=== PATIENT | female | born 1960 | race American Indian/Alaskan Native ===

== ENCOUNTER 2017-01-22 08:15 | Emergency (ER) | payer MEDICARE, OTHER ==
[2017-01-22] MEDS ORDERED: Ondansetron 4 MG Tab.DIS PO ONE (08:44)
[2017-01-22] MEDS ORDERED: HYDROmorphone 1 MG/ML Syringe IM ONE (08:44)
--- NOTE | 2017-01-22 08:53 | EDM.PDOC ---
ED HPI GENERAL MEDICAL PROBLEM - General Chief Complaint: ENT Problem Stated Complaint: EAR AND BACK OF HER HEAD PAIN Time Seen by Provider: 01/22/17 08:21 Source of Information: Reports: Patient History Limitations: Reports: No Limitations - History of Present Illness INITIAL COMMENTS - FREE TEXT/NARRATIVE: History of present illness: []She started having pain in the right back of her head radiating down her neck into her right ear 3 days ago. He saw [place] yesterday who diagnosed her with an otitis media and put her on Augmentin and Toradol. Patient has chronic back pain and takes tramadol and the pharmacist recommended that she take the tramadol with ibuprofen rather Toradol. Today she broke out in a rash is worsening pain in the back of her head shooting into her right ear. Her pain is now severe and it is not improved with tramadol or Toradol. Review of systems: As per history of present illness and below otherwise all systems reviewed and negative. Past medical history: As per history of present illness and as reviewed below otherwise noncontributory. Surgical history: As per history of present illness and as reviewed below otherwise noncontributory. Social history: No reported history of drug or alcohol abuse. Family history: As per history of present illness and as reviewed below otherwise noncontributory. Physical exam: General: Well developed, well nourished in NAD HEENT: Atraumatic, normocephalic, pupils reactive, negative for conjunctival pallor or scleral icterus, mucous membranes moist, throat clear, neck supple erythematous papular rash from the back of her skull down right neck., Tender to palpation, trachea midline. Lungs: Clear to auscultation, breath sounds equal bilaterally, chest nontender. Heart: S1S2, regular, negative for clicks, rubs, or JVD. Abdomen: Soft, nondistended, nontender. Negative for masses or hepatosplenomegaly. Negative for costovertebral tenderness. Pelvis: Stable nontender. Genitourinary: Deferred. Rectal: Deferred. Extremities: Atraumatic, negative for cords or calf pain. Neurovascular unremarkable. Neuro: Awake, alert, oriented. Cranial nerves II through XII unremarkable. Cerebellum unremarkable. Motor and sensory unremarkable throughout. Exam nonfocal. Diagnostics: [] Therapeutics: []Dilaudid IM in the ED Impression: []Herpes zoster Plan: []Acyclovir, [place], follow-up with PMD Definitive disposition and diagnosis as appropriate pending reevaluation and review of above. Right Ear Pain Score (Numeric/FACES): 10 - Related Data Allergies Allergy/AdvReac Type Severity Reaction Status Date / Time No Known Allergies Allergy Verified 11/26/14 17:57 Home Meds: Home Meds Zolpidem Tartrate [Zolpidem Tartrate ER] 12.5 mg PO ASDIRECTED PRN 11/26/14 [ History] traMADol HCl [Tramadol HCl] 100 mg PO Q6H PRN 11/26/14 [History] Acetaminophen/HYDROcodone [[place] 325-5 MG] 1 tab PO Q4H PRN #20 tablet 01/22/17 [Rx] Acyclovir 800 mg PO 5XDAY #50 tablet 01/22/17 [Rx] Amoxicillin/Potassium Clav [Amox-Clav 875-125 mg Tablet] 1 tab PO BID 01/22/17 [ History] LORazepam 1 mg PO ASDIRECTED PRN 01/22/17 [History] Past Medical History Other HEENT History: ear infection Other Cardiovascular History: mild heart attack Psychiatric History: Reports: Anxiety - Past Surgical History Other HEENT Surgeries/Procedures: ear surgery Other Musculoskeletal Surgeries/Procedures:: 7x back surgery Social & Family History - Family History Family Medical History: Noncontributory - Tobacco Use Smoking Status *Q: Current Every Day Smoker Years of Tobacco use: 30 Packs/Tins Daily: 1 Used Tobacco, but Quit: No Second Hand Smoke Exposure: No - Caffeine Use Caffeine Use: Reports: Coffee - Alcohol Use Days Per Week of Alcohol Use: 1 Number of Drinks Per Day: 1 Total Drinks Per Week: 1 - Recreational Drug Use Recreational Drug Use: No ED ROS ENT - Review of Systems Review Of Systems: See Below (See history of present illness) ED EXAM, ENT - Physical Exam Exam: See Below (See history of present illness) Course - Vital Signs Last Recorded V/S: Last Vital Signs Temp 96.5 F 01/22/17 08:32 Pulse 81 01/22/17 08:32 Resp 20 01/22/17 08:32 BP 168/98 H 01/22/17 08:32 Pulse Ox 96 01/22/17 08:32 - Orders/Labs/Meds Meds: Medications Discontinued Medications Generic Name Dose Route Start Last Admin Trade Name Freq PRN Reason Stop Dose Admin Hydromorphone HCl 1 mg 01/22/17 08:44 01/22/17 08:56 Dilaudid IM 01/22/17 08:45 1 mg ONETIME ONE Administration Ondansetron HCl 4 mg 01/22/17 08:44 01/22/17 08:57 Zofran Odt PO 01/22/17 08:45 4 mg ONETIME ONE Administration Departure - Departure Time of Disposition: 09:34 Disposition: Home, Self-Care 01 Condition: Good Clinical Impression: Herpes zoster Qualifiers: Herpes zoster complications: without complications Qualified Code(s): B02.9 - Zoster without complications - Discharge Information Prescriptions: Acetaminophen/HYDROcodone [[place] 325-5 MG] 1 tab PO Q4H PRN #20 tablet PRN Reason: Pain Acyclovir 800 mg PO 5XDAY #50 tablet Instructions: Shingles, [id number] Referrals: PCP,None [Primary Care Provider] - Forms: ED Department Discharge Additional Instructions: The following information is given to patients seen in the emergency department who are being discharged to home. This information is to outline your options for follow-up care. We provide all patients seen in our emergency department with a follow-up referral. The need for follow-up, as well as the timing and circumstances, are variable depending upon the specifics of your emergency department visit. If you don't have a primary care physician on staff, we will provide you with a referral. We always advise you to contact your personal physician following an emergency department visit to inform them of the circumstance of the visit and for follow-up with them and/or the need for any referrals to a consulting specialist. The emergency department will also refer you to a specialist when appropriate. This referral assures that you have the opportunity for follow-up care with a specialist. All of these measure are taken in an effort to provide you with optimal care, which includes your follow-up. Under all circumstances we always encourage you to contact your private physician who remains a resource for coordinating your care. When calling for follow-up care, please make the office aware that this follow-up is from your recent emergency room visit. If for any reason you are refused follow-up, please contact the [facility] Emergency Department at and asked to speak to the emergency department charge nurse. [place] and acyclovir as directed follow-up with primary care as needed on next available date [facility] [address] [place] [id number]
[2017-01-22 10:14] VITALS: BP 162/95
== END 2017-01-22 09:18 | disposition home or self-care (01) ==
LOC: MW.ED 08:15
DX: B02.9 Zoster without complications (principal); F17.210 Nicotine dependence, cigarettes, uncomplicated
CPT/HCPCS: 96372; 99282; A9270; J1170

== ENCOUNTER 2018-05-03 17:22 | Emergency (ER) | payer MEDICARE, OTHER ==
--- NOTE | 2018-05-03 17:26 | EDM.PDOC ---
ED HPI GENERAL MEDICAL PROBLEM - General Chief Complaint: Genitourinary Problem Stated Complaint: POSS UTI Time Seen by Provider: 05/03/18 17:23 Source of Information: Reports: Patient History Limitations: Reports: No Limitations - History of Present Illness INITIAL COMMENTS - FREE TEXT/NARRATIVE: HISTORY AND PHYSICAL: History of present illness: Patient is a 58-year-old female who complains of dysuria for approximately one month. She states that this discomfort has been exacerbated since starting amoxicillin for a dental procedure. She also notes that she has started having a yeast infection since starting the amoxicillin. She denies any fever, chills, chest pain, shortness of breath or cough. Denies any abdominal pain, nausea, vomiting, diarrhea, constipation. She has been eating and drinking appropriately. Review of systems: As per history of present illness and below otherwise all systems reviewed and negative. Past medical history: As per history of present illness and as reviewed below otherwise noncontributory. Surgical history: As per history of present illness and as reviewed below otherwise noncontributory. Social history: See social history for further information Family history: As per history of present illness and as reviewed below otherwise noncontributory. Physical exam: General: Well-developed and well-nourished 58-year-old female. Alert and oriented. Nontoxic appearing and in no acute distress. HEENT: Atraumatic, normocephalic, pupils equal and reactive bilaterally, negative for conjunctival pallor or scleral icterus, mucous membranes moist, TMs normal bilaterally, throat clear, neck supple, nontender, trachea midline. No drooling or trismus noted. No meningeal signs. No hot potato voice noted. Lungs: Clear to auscultation, breath sounds equal bilaterally, chest nontender. Heart: S1S2, regular rate and rhythm without overt murmur Abdomen: Soft, nondistended, nontender. Negative for masses or hepatosplenomegaly. Negative for costovertebral tenderness. Pelvis: Stable nontender. Genitourinary: Deferred. Rectal: Deferred. Skin: Intact, warm, dry. No lesions or rashes noted. Extremities: Atraumatic, negative for cords or calf pain. Neurovascular unremarkable. Neuro: Awake, alert, oriented. Cranial nerves II through XII unremarkable. Cerebellum unremarkable. Motor and sensory unremarkable throughout. Exam nonfocal. Notes: We'll treat her increased infection with Diflucan. Prescription for Cipro and Pyridium given. Culture has been added. Supportive care measures were reviewed and discussed. Voices understanding and is agreeable to plan of care. Denies any further questions or concerns at this time. Diagnostics: UA Therapeutics: None Prescription: Diflucan Pyridium Cipro Impression: UTI Candidiasis Plan: 1. Increase your oral fluids. 2. Take the medications as prescribed. 3. Follow-up with your primary care provider as we discussed. Return to the ED as needed and as discussed. Definitive disposition and diagnosis as appropriate pending reevaluation and review of above. genital area Pain Score (Numeric/FACES): 10 - Related Data Allergies Allergy/AdvReac Type Severity Reaction Status Date / Time No Known Allergies Allergy Verified 11/26/14 17:57 Home Meds: Home Meds Zolpidem Tartrate [Zolpidem Tartrate ER] 12.5 mg PO ASDIRECTED PRN 11/26/14 [ History] traMADol HCl [Tramadol HCl] 100 mg PO Q6H PRN 11/26/14 [History] Acetaminophen/HYDROcodone [[place] 325-5 MG] 1 tab PO Q4H PRN #20 tablet 01/22/17 [Rx] Acyclovir 800 mg PO 5XDAY #50 tablet 01/22/17 [Rx] Amoxicillin/Potassium Clav [Amox-Clav 875-125 mg Tablet] 1 tab PO BID 01/22/17 [ History] LORazepam 1 mg PO ASDIRECTED PRN 01/22/17 [History] Pregabalin [Lyrica] 25 mg PO DAILY 05/03/18 [History] Past Medical History Other HEENT History: ear infection Other Cardiovascular History: mild heart attack Psychiatric History: Reports: Anxiety - Past Surgical History Other HEENT Surgeries/Procedures: ear surgery Other Musculoskeletal Surgeries/Procedures:: 7x back surgery Social & Family History - Family History Family Medical History: Noncontributory - Caffeine Use Caffeine Use: Reports: Coffee ED ROS GENERAL - Review of Systems Review Of Systems: ROS reveals no pertinent complaints other than HPI. ED EXAM, RENAL/ - Physical Exam Exam: See Below (See dictation) Course - Vital Signs Last Recorded V/S: Last Vital Signs Temp 96.9 F 05/03/18 17:39 Pulse 88 05/03/18 17:39 Resp 18 05/03/18 17:39 BP Pulse Ox 98 05/03/18 17:39 - Orders/Labs/Meds Orders: Active Orders 24 hr Category Date Time Status CULTURE URINE [RM] Stat Lab 05/03/18 17:23 Received UA W/MICROSCOPIC [URIN] Stat Lab 05/03/18 17:23 Results Labs: Laboratory Tests 05/03/18 Range/Units 17:23 Urine Color YELLOW Urine Appearance SLT CLOUDY Urine pH 6.0 (5.0-8.0) Ur Specific [place] 1.025 (1.001-1.035) Urine Protein 100 H (NEGATIVE) mg/dL Urine Glucose (UA) NEGATIVE (NEGATIVE) mg/dL Urine Ketones NEGATIVE (NEGATIVE) mg/dL Urine Occult Blood LARGE H (NEGATIVE) Urine Nitrite POSITIVE H (NEGATIVE) Urine Bilirubin NEGATIVE (NEGATIVE) Urine Urobilinogen 0.2 (<2.0) EU/dL Ur Leukocyte Esterase MODERATE H (NEGATIVE) Departure - Departure Time of Disposition: 18:06 Disposition: Home, Self-Care 01 Clinical Impression: UTI, Urinary tract infectious disease - Discharge Information Instructions: Urinary Tract Infection, Adult, [id number] Forms: ED Department Discharge Additional Instructions: The following information is given to patients seen in the emergency department who are being discharged to home. This information is to outline your options for follow-up care. We provide all patients seen in our emergency department with a follow-up referral. The need for follow-up, as well as the timing and circumstances, are variable depending upon the specifics of your emergency department visit. If you don't have a primary care physician on staff, we will provide you with a referral. We always advise you to contact your personal physician following an emergency department visit to inform them of the circumstance of the visit and for follow-up with them and/or the need for any referrals to a consulting specialist. The emergency department will also refer you to a specialist when appropriate. This referral assures that you have the opportunity for follow-up care with a specialist. All of these measure are taken in an effort to provide you with optimal care, which includes your follow-up. Under all circumstances we always encourage you to contact your private physician who remains a resource for coordinating your care. When calling for follow-up care, please make the office aware that this follow-up is from your recent emergency room visit. If for any reason you are refused follow-up, please contact the [facility] Emergency Department at and asked to speak to the emergency department charge nurse. [facility] [address], [place] [address] [id number] 1. Increase your oral fluids. 2. Stop the Amoxicillin. Take the new medications as prescribed. 3. Follow-up with your primary care provider as we discussed. Return to the ED as needed and as discussed. - My Orders Last 24 Hours: My Active Orders 05/03/18 17:23 CULTURE URINE [RM] Stat UA W/MICROSCOPIC [URIN] Stat - Assessment/Plan Last 24 Hours: My Active Orders 05/03/18 17:23 CULTURE URINE [RM] Stat UA W/MICROSCOPIC [URIN] Stat
[2018-05-03 18:33] VITALS: BP 138/89
== END 2018-05-03 18:20 | disposition home or self-care (01) ==
LOC: MW.ED 17:22
DX: N39.0 Urinary tract infection, site not specified (principal); B37.2 Candidiasis of skin and nail; F41.9 Anxiety disorder, unspecified; Z79.899 Other long term (current) drug therapy
CPT/HCPCS: 81001; 87086; 87088; 87186; 99283

== ENCOUNTER 2019-04-16 16:03 | Emergency (ER) | payer MEDICARE, OTHER ==
[2019-04-16] MEDS ORDERED: Ondansetron 4 MG/2 ML SDV IVPUSH ONE (16:24)
[2019-04-16] MEDS ORDERED: Sodium Chloride 0.9% 1,000 ML IV ONE (16:24)
[2019-04-16] MEDS ORDERED: Sodium Chloride 0.9% 2.5 ML Syringe FLUSH PRN (16:24)
[2019-04-16] MEDS ORDERED: Sodium Chloride 0.9% 10 ML Syringe FLUSH PRN (16:24)
[2019-04-16] MEDS ORDERED: Morphine 4 MG/ML Syringe IVPUSH ONE (16:27)
[2019-04-16 17:24] LABS: BLOOD UREA NITROGEN,BUN 17 mg/dL (7.0-18.0); CARBON DIOXIDE,CO2 28.3 mmol/L (21.0-32.0); CHLORIDE,CL 104 mmol/L (98-107); GLUCOSE RANDOM 133 mg/dL (74-106); LIPASE 277 U/L (73-393); POTASSIUM,K 3.6 mmol/L (3.5-5.1); SODIUM,NA 141 mmol/L (136-145)
[2019-04-16] MEDS ORDERED: Iopamidol 755 MG/ML 200 ML Multipack Bottle IVPUSH ONE (17:57)
--- NOTE | 2019-04-16 18:20 | CT ---
CT abdomen and pelvis Technique: Multiple axial sections were obtained from above the dome of the diaphragm inferiorly through the pubic symphysis. Intravenous contrast was utilized. No oral contrast has been given. Comparison: No prior abdominal imaging is available. Findings: Slight parenchymal density is noted within the right middle lobe believed to represent a mild area of scarring. Visualized lung bases show nothing acute. Liver contains no focal parenchymal abnormality. Small hiatal hernia is noted. Spleen appears within normal limits. Adrenal glands show no nodule. Pancreas is within normal limits. Gallbladder not visualized. Kidneys show symmetric contrast enhancement. Several small cortical lesions which are too small to characterize by Hounsfield unit measurement are seen within the right kidney which are statistically most likely representing cysts. Slightly larger abnormality is noted within the left kidney which has Hounsfield unit measurements of a cyst and measures 9 mm. No additional abnormality is appreciated within the kidneys. Aorta shows atherosclerotic calcification without aneurysm. No retroperitoneal adenopathy is seen. No mesenteric abnormalities are seen. No pelvic mass or adenopathy is seen. Mild increased stool is noted throughout the colon. Appendix is not visualized with certainty. No bowel dilatation is seen. Bone window settings were reviewed. Prior surgery is noted at L4-5 and L5-S1 with transpedicle screws and disc fusion. Minimal fat-containing umbilical hernia is noted. Impression: 1. Slight increased stool throughout the colon. 2. Other findings believed to be incidental as noted above. Nothing acute is appreciated on CT study of the abdomen and pelvis. Diagnostic code #2 This report was dictated in [place] Standard Time
--- NOTE | 2019-04-16 18:35 | EDM.PDOC ---
ED HPI GENERAL MEDICAL PROBLEM - General Chief Complaint: Abdominal Pain Stated Complaint: LUMP UPPER STOMACH AND PAIN Time Seen by Provider: 04/16/19 16:21 Source of Information: Reports: Patient History Limitations: Reports: No Limitations - History of Present Illness INITIAL COMMENTS - FREE TEXT/NARRATIVE: Pt with history of prior open cholecystectomy presents with mild epigastric abdominal pain for one week. pt denies vomiting, fever diarrhea or any other symptoms. Abdominal Pain Score (Numeric/FACES): 8 - Related Data Allergies Allergy/AdvReac Type Severity Reaction Status Date / Time No Known Allergies Allergy Verified 04/16/19 16:13 Home Meds: Home Meds Zolpidem Tartrate [Zolpidem Tartrate ER] 12.5 mg PO ASDIRECTED PRN 11/26/14 [ History] traMADol HCl [Tramadol HCl] 100 mg PO Q6H PRN 11/26/14 [History] Acyclovir 800 mg PO 5XDAY #50 tablet 01/22/17 [Rx] Amoxicillin/Potassium Clav [Amox-Clav 875-125 mg Tablet] 1 tab PO BID 01/22/17 [ History] LORazepam 1 mg PO ASDIRECTED PRN 01/22/17 [History] Pregabalin [Lyrica] 25 mg PO DAILY 05/03/18 [History] polyethylene glycoL 3350 [MiraLAX] 17 gm PO DAILY #20 packet 04/16/19 [Rx] Past Medical History Other HEENT History: ear infection Other Cardiovascular History: mild heart attack Psychiatric History: Reports: Anxiety - Infectious Disease History Infectious Disease History: Reports: Chicken Pox - Past Surgical History Other HEENT Surgeries/Procedures: ear surgery GI Surgical History: Reports: Cholecystectomy, Hernia, Abdominal Other Musculoskeletal Surgeries/Procedures:: 7x back surgery Social & Family History - Family History Family Medical History: Noncontributory - Tobacco Use Smoking Status *Q: Current Every Day Smoker Years of Tobacco use: 40 Packs/Tins Daily: 0.5 - Caffeine Use Caffeine Use: Reports: None - Recreational Drug Use Recreational Drug Use: Yes Recreational Drug Type: Reports: Marijuana/Hashish Other Recreational Drug Type: last used a couple days ago Recreational Drug Use Frequency: Rarely ED ROS GENERAL - Review of Systems Review Of Systems: See Below Constitutional: Reports: No Symptoms Respiratory: Reports: No Symptoms Cardiovascular: Reports: No Symptoms. Denies: Chest Pain GI/Abdominal: Reports: Abdominal Pain, Constipation, Nausea. Denies: Black Stool, Bloody Stool, Diarrhea, Vomiting ED EXAM, GI/ABD - Physical Exam Exam: See Below Exam Limited By: No Limitations General Appearance: Alert, WD/WN, No Apparent Distress Head: Atraumatic, Normocephalic Respiratory/Chest: No Respiratory Distress, Lungs Clear, Normal Breath Sounds Cardiovascular: Regular Rate, Rhythm, No Murmur GI/Abdominal Exam: Soft, Non-Tender, No Distention, No Mass Extremities: Normal Inspection Neurological: Oriented, Normal Gait Skin Exam: Warm, Dry, Intact Course - Vital Signs Last Recorded V/S: Last Vital Signs Temp 97.8 F 04/16/19 18:49 Pulse 88 04/16/19 18:49 Resp 17 04/16/19 18:49 BP 128/81 04/16/19 18:49 Pulse Ox 95 04/16/19 18:49 - Orders/Labs/Meds Labs: Laboratory Tests 04/16/19 04/16/19 Range/Units 16:47 16:47 WBC 7.31 (4.0-11.0) K/uL RBC 4.56 (4.30-5.90) M/uL Hgb 13.6 (12.0-16.0) g/dL Hct 41.4 (36.0-46.0) % MCV 90.8 (80.0-98.0) fL MCH 29.8 (27.0-32.0) pg MCHC 32.9 (31.0-37.0) g/dL RDW Std Deviation 47.1 (28.0-62.0) fl RDW Coeff of Kari 14 (11.0-15.0) % Plt Count 218 (150-400) K/uL MPV 10.90 (7.40-12.00) fL Neut % (Auto) 56.6 (48.0-80.0) % Lymph % (Auto) 29.3 (16.0-40.0) % [place] % (Auto) 12.7 (0.0-15.0) % Eos % (Auto) 1.1 (0.0-7.0) % Baso % (Auto) 0.3 (0.0-1.5) % Neut # (Auto) 4.1 (1.4-5.7) K/uL Lymph # (Auto) 2.1 (0.6-2.4) K/uL [place] # (Auto) 0.9 H (0.0-0.8) K/uL Eos # (Auto) 0.1 (0.0-0.7) K/uL Baso # (Auto) 0.0 (0.0-0.1) K/uL Nucleated RBC % 0.0 /100WBC Nucleated RBCs # 0 K/uL Sodium 141 (136-145) mmol/L Potassium 3.6 (3.5-5.1) mmol/L Chloride 104 (98-107) mmol/L Carbon Dioxide 28.3 (21.0-32.0) mmol/L BUN 17 (7.0-18.0) mg/dL Creatinine 0.9 (0.6-1.0) mg/dL Est Cr Clr Drug Dosing 57.40 mL/min Estimated GFR (MDRD) > 60.0 ml/min Glucose 133 H (74-106) mg/dL Calcium 8.7 (8.5-10.1) mg/dL Total Bilirubin 0.6 (0.2-1.0) mg/dL AST 13 L (15-37) IU/L ALT 31 (14-63) IU/L Alkaline Phosphatase 68 (46-116) U/L Troponin I < 0.050 (0.000-0.056) ng/mL Total Protein 6.5 (6.4-8.2) g/dL Albumin 3.6 (3.4-5.0) g/dL Globulin 2.9 (2.6-4.0) g/dL Albumin/Globulin Ratio 1.2 (0.9-1.6) Lipase 277 (73-393) U/L Meds: Medications Discontinued Medications Generic Name Dose Route Start Last Admin Trade Name Freq PRN Reason Stop Dose Admin Sodium Chloride 1,000 mls @ 999 mls/hr 04/16/19 16:24 04/16/19 16:54 Normal Saline IV 04/16/19 17:24 999 mls/hr BOLUS ONE Administration Iopamidol 100 ml 04/16/19 17:57 04/16/19 17:58 Isovue Multipack-370 (76%) IVPUSH 04/16/19 17:58 100 ml ONETIME ONE Administration Morphine Sulfate 4 mg 04/16/19 16:27 Morphine IVPUSH 04/16/19 16:28 ONETIME ONE Ondansetron HCl 4 mg 04/16/19 16:24 04/16/19 16:53 Zofran IVPUSH 04/16/19 16:25 4 mg ONETIME ONE Administration Sodium Chloride 10 ml 04/16/19 16:24 Saline Flush FLUSH ASDIRECTED PRN Keep Vein Open Sodium Chloride 2.5 ml 04/16/19 16:24 Saline Flush FLUSH ASDIRECTED PRN Keep Vein Open - Re-Assessments/Exams Free Text/Narrative Re-Assessment/Exam: VS stable and PE benign. Pt initially tearful on interview and morphine initially ordered. Pt slept comfortable for most of her ed stay and morphine held and not given. ED work up clinically unremarkable. Results discussed in detail with pt after awakening her. Pt improved with ED therapy and is comfortable with discharge. Strict return precautions discussed should symptoms worsen or any concerns arise. Departure - Departure Time of Disposition: 18:32 Disposition: Home, Self-Care 01 Condition: Good Clinical Impression: Abdominal pain, Constipation - Discharge Information *PRESCRIPTION DRUG MONITORING PROGRAM REVIEWED*: Not Applicable *COPY OF PRESCRIPTION DRUG MONITORING REPORT IN PATIENT STAN: Not Applicable Prescriptions: polyethylene glycoL 3350 [MiraLAX] 17 gm PO DAILY #20 packet Instructions: Constipation, Adult, [place], Abdominal Pain, Adult, Easy-to -Read Referrals: Shante Trejo MD [Primary Care Provider] - Forms: ED Department Discharge Additional Instructions: My general discharge The following information is given to patients seen in the emergency department who are being discharged to home. This information is to outline your options for follow-up care. We provide all patients seen in our emergency department with a follow-up referral. The need for follow-up, as well as the timing and circumstances, are variable depending upon the specifics of your emergency department visit. If you don't have a primary care physician on staff, we will provide you with a referral. We always advise you to contact your personal physician following an emergency department visit to inform them of the circumstance of the visit and for follow-up with them and/or the need for any referrals to a consulting specialist. The emergency department will also refer you to a specialist when appropriate. This referral assures that you have the opportunity for follow-up care with a specialist. All of these measure are taken in an effort to provide you with optimal care, which includes your follow-up. Under all circumstances we always encourage you to contact your private physician who remains a resource for coordinating your care. When calling for follow-up care, please make the office aware that this follow-up is from your recent emergency room visit. If for any reason you are refused follow-up, please contact the [facility] Emergency Department at and asked to speak to the emergency department charge nurse. Sepsis Event Note - Evaluation Sepsis Screening Result: No Definite Risk - Focused Exam Date Exam was Performed: 04/18/19 Time Exam was Performed: 12:06
[2019-04-16 18:54] VITALS: BP 128/81; PULSE 88
== END 2019-04-16 18:49 | disposition home or self-care (01) ==
LOC: MW.ED 16:03
DX: K59.00 Constipation, unspecified (principal); F17.210 Nicotine dependence, cigarettes, uncomplicated
CPT/HCPCS: 36415; 74177; 80053; 83690; 84484; 85025; 93005; 96361; 96374; 99284; J2405; J7030; Q9967; 99283

== ENCOUNTER 2020-03-30 12:45 | Emergency (ER) | payer MEDICARE, OTHER ==
[2020-03-30] MEDS ORDERED: Albuterol 0.083% 2.5 MG/3 ML Neb Soln NEB STA (13:49)
[2020-03-30] MEDS ORDERED: cefTRIAXone 2 GM in Premix Bag 1 BAG IV ONE (14:05)
--- NOTE | 2020-03-30 14:08 | CR ---
INDICATION: Dyspnea. TECHNIQUE: Chest 1 view. COMPARISON: 11/26/2014. FINDINGS: Cardiovascular and mediastinum: Heart size and vasculature are normal in caliber and appearance. Mediastinum is within normal limits. Lungs and pleural space: Lungs are clear. No sign of infiltrate or mass. No sign of pleural effusion. No pneumothorax. Bones and soft tissues: No significant findings. IMPRESSION: Lungs are clear. Dictated by Otis Oropeza MD @ Mar 30 2020 2:06PM Signed by Dr. Otis Oropeza @ Mar 30 2020 2:08PM
--- NOTE | 2020-03-30 14:13 | CR ---
Indication: Left hand swelling and pain Technique: Left hand 3 views Comparison: None Findings: Bones: Alignment is normal. No fractures or bone lesions. Joint spaces: Mild arthritic changes present throughout the IP joints. Soft tissues: Nonspecific generalized soft tissue swelling. No focal soft tissue abnormality. No foreign body. Dictated by Fritz Lynch MD @ Mar 30 2020 2:09PM Signed by Dr. Fritz Lynch @ Mar 30 2020 2:10PM
[2020-03-30] MEDS ORDERED: Ketorolac 15 MG/ML SDV IVPUSH ONE (14:36)
[2020-03-30 15:57] LABS: BLOOD UREA NITROGEN,BUN 14 mg/dL (7.0-18.0); CARBON DIOXIDE,CO2 28.5 mmol/L (21.0-32.0); CHLORIDE,CL 100 mmol/L (98-107); GLUCOSE RANDOM 113 mg/dL (74-106); POTASSIUM,K 3.8 mmol/L (3.5-5.1); SODIUM,NA 139 mmol/L (136-145)
[2020-03-30] MEDS ORDERED: Cephalexin 500 MG Cap PO ONE (16:46)
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
[2020-03-30 17:08] VITALS: BP 130/79; PULSE 84
== END 2020-03-30 17:10 | disposition home or self-care (01) ==
LOC: MW.ED 12:45
DX: L03.114 Cellulitis of left upper limb (principal); L02.512 Cutaneous abscess of left hand; R06.2 Wheezing; Z72.0 Tobacco use; Z20.822 Contact with and (suspected) exposure to COVID-19
CPT/HCPCS: 36415; 71045; 73130; 80048; 85025; 94640; 96365; 96375; 99284; A9270; J0696; J1885; U0002; 99283

== ENCOUNTER 2021-09-11 12:22 | Emergency (ER) | payer MEDICARE, OTHER ==
[2021-09-11] MEDS ORDERED: Morphine 4 MG/ML VIAL IVPUSH ONE (13:05)
[2021-09-11] MEDS ORDERED: Pantoprazole 80 MG in Sodium Chloride 0.9% 10 ML IVPUSH ONE (13:05)
[2021-09-11 14:30] LABS: CARBON DIOXIDE,CO2 25.7 mmol/L (21.0-32.0); POTASSIUM,K 3.4 mmol/L (3.5-5.1)
[2021-09-11 15:48] VITALS: BP 135/83; PULSE 74
== END 2021-09-11 17:14 | disposition home or self-care (01) ==
LOC: MW.ED 12:22
DX: R07.9 Chest pain, unspecified (principal); Z79.899 Other long term (current) drug therapy; Z90.49 Acquired absence of other specified parts of digestive tract; Z20.822 Contact with and (suspected) exposure to COVID-19
CPT/HCPCS: 36415; 71045; 80048; 82247; 83690; 83735; 84075; 84450; 84460; 84484; 85025; 93005; 96374; 96375; 99285; C9113; J2270; J3490; U0002; 93010; 99284

== ENCOUNTER 2021-09-28 09:32 | Emergency (ER) | payer MEDICARE, OTHER | END 2021-09-28 10:40 | disposition left against medical advice (07) | LOC: MW.ED 09:32 | DX: Z53.21 Procedure and treatment not carried out due to patient leaving prior to being seen by health care provider (principal) ==

== ENCOUNTER 2022-05-14 10:48 | Emergency (ER) | payer MEDICARE, OTHER ==
[2022-05-14 12:18] LABS: BLOOD UREA NITROGEN,BUN 12 mg/dL (7.0-18.0); CARBON DIOXIDE,CO2 28.4 mmol/L (21.0-32.0); CHLORIDE,CL 105 mmol/L (98-107); GLUCOSE RANDOM 140 mg/dL (74-106); POTASSIUM,K 3.7 mmol/L (3.5-5.1); SODIUM,NA 143 mmol/L (136-145)
[2022-05-14 12:29] LABS: ESTIMATED GFR 97 mL/min (>60)
[2022-05-14] MEDS ORDERED: Alum Hydro/Mag Hydro/Simeth XS 15 ML, Lidocaine 2% 5 ML PO STA ×2 (13:42)
[2022-05-14 14:56] VITALS: BP 115/78; PULSE 78
== END 2022-05-14 14:55 | disposition home or self-care (01) ==
LOC: MW.ED 10:48
DX: R07.89 Other chest pain (principal); M25.511 Pain in right shoulder; J45.909 Unspecified asthma, uncomplicated
CPT/HCPCS: 36415; 71045; 73030; 80053; 84484; 85025; 93005; 99285; A9270; 93010; 99283

== ENCOUNTER 2022-08-10 13:44 | Emergency (ER) | payer MEDICARE, OTHER ==
[2022-08-10] MEDS ORDERED: Sodium Chloride 0.9% 2.5 ML Syringe FLUSH PRN (13:47)
[2022-08-10] MEDS ORDERED: Sodium Chloride 0.9% 10 ML Syringe FLUSH PRN (13:47)
[2022-08-10 13:53] VITALS: BP 144/95; PULSE 64
[2022-08-10 14:21] LABS: APPEARANCE,URINE CLEAR; BILIRUBIN,URINE NEGATIVE (NEGATIVE); COLOR,URINE YELLOW; GLUCOSE,URINE NEGATIVE (NEGATIVE); KETONES,URINE NEGATIVE (NEGATIVE); LEUKOCYTE ESTERASE,URINE NEGATIVE (NEGATIVE); NITRITE,URINE NEGATIVE (NEGATIVE); OCCULT BLOOD,URINE NEGATIVE (NEGATIVE); PROTEIN,URINE NEGATIVE (NEGATIVE); UROBILINOGEN,URINE 0.2 EU/dL (<2.0)
[2022-08-10 14:31] LABS: AMPHETAMINES SCREEN, URINE PRESUMPTIVE POSITIVE (CUTOFF=500); BARBITURATE SCREEN,URINE NEGATIVE (CUTOFF=200); BENZODIAZEPINES SCREEN,URINE PRESUMPTIVE POSITIVE (CUTOFF=150); BUPRENORPHINE SCREEN,URINE NEGATIVE (CUTOFF=10); METHADONE SCREEN, URINE NEGATIVE (CUTOFF=200); METHAMPHETAMINES SCREEN, URINE PRESUMPTIVE POSITIVE (CUTOFF=500); OXYCODONE SCREEN,URINE NEGATIVE (CUT0FF=100); PCP SCREEN,URINE NEGATIVE (CUTOFF=25); PROPOXYPHENE SCREEN,URINE NEGATIVE (CUTOFF=300); THC SCREEN,URINE 20 NG/ML PRESUMPTIVE POSITIVE (CUTOFF=50)
== END 2022-08-10 14:20 | disposition left against medical advice (07) ==
LOC: MW.ED 13:44
DX: R07.9 Chest pain, unspecified (principal); F12.10 Cannabis abuse, uncomplicated; F15.10 Other stimulant abuse, uncomplicated; F19.10 Other psychoactive substance abuse, uncomplicated; J44.9 Chronic obstructive pulmonary disease, unspecified; I10 Essential (primary) hypertension; Z72.0 Tobacco use
CPT/HCPCS: 71045; 71045-26; 80305-QW; 81003; 93005; 93010; 99284; 99285